=== PATIENT | male | born 1995 | race Caucasian/White ===

== ENCOUNTER 2016-12-14 08:05 | Emergency (ER) | payer BC ==
--- NOTE | 2016-12-14 09:19 | RAD ---
INDICATION: Cough. Short of breath COMPARISON: None TECHNIQUE: PA and lateral dual-energy views were obtained. FINDINGS: Bones/Soft Tissues: There are no acute bony findings. Cardiomediastinal: The cardiomediastinal silhouette is normal. Lungs: There are no infiltrates. Pleura: There are no pleural effusions. Other: None IMPRESSION: NO ACTIVE DISEASE.
--- NOTE | 2016-12-14 09:19 | ED ---
Respiratory - HPI Summary HPI Summary: 21M presents with cough, sinus congestion for 2 days. He has admits to SOB with cough. He denies any chest pain. He denies any abdominal pain or generalized body aches. He also complains of bilateral hip pain. He denies any injury to the hip. He denies any fever. He states ibuprofen alleviates his hip pain. He states that walking does not affect the pain. He did have asthma when he was younger and he does smoke. - History of Current Complaint Chief Complaint: EDUpperRespComplaint Stated Complaint: FLU LIKE SYMPTOMS/HIP COMPLAINT Time Seen by Provider: 12/14/16 08:14 Pain Intensity: 6 - Allergy/Home Medications Allergies/Adverse Reactions: Allergies Allergy/AdvReac Type Severity Reaction Status Date / Time No Known Allergies Allergy Verified 07/09/16 17:20 PMH/Surg Hx/FS Hx/Imm Hx Cardiovascular History: Denies: Hx Hypertension Respiratory History: Reports: Hx Asthma - CHILDHOOD Infectious Disease History: Denies: Traveled Outside the [place] in Last 30 Days - Family History Known Family History: Negative: Cardiac Disease - Social History Alcohol Use: Rare Substance Use Type: Reports: None Smoking Status (MU): Former Smoker Have You Smoked in the Last Year: No Review of Systems Negative: Fever Positive: Nasal Discharge Negative: Chest Pain Positive: Shortness Of Breath, Cough Positive: Myalgia - hip pain bilateral All Other Systems Reviewed And Are Negative: Yes Physical Exam Triage Information Reviewed: Yes Vital Signs On Initial Exam: Initial Vitals Temp Pulse Resp BP Pulse Ox 97.9 F 91 20 119/69 97 12/14/16 08:07 12/14/16 08:07 12/14/16 08:07 12/14/16 08:07 12/14/16 08:07 Vital Signs Reviewed: Yes Appearance: Positive: Well-Appearing Skin: Positive: Warm, Dry Head/Face: Positive: Normal Head/Face Inspection Eyes: Positive: Normal, Conjunctiva Clear ENT: Positive: Normal ENT inspection, Pharynx normal, Nasal congestion, TMs normal Neck: Positive: Supple, Nontender, No Lymphadenopathy Respiratory/Lung Sounds: Positive: Clear to Auscultation, Breath Sounds Present Cardiovascular: Positive: Normal, RRR Musculoskeletal: Positive: Strength/ROM Intact - of hips, Other - negative MANISH test, good pulses - Kennedy Coma Scale Coma Scale Total: 15 Diagnostics - Vital Signs Vital Signs Temp Pulse Resp BP Pulse Ox 12/14/16 08:14 97.9 F 88 20 116/70 97 12/14/16 08:07 97.9 F 91 20 119/69 97 - Laboratory Lab Statement: Any lab studies that have been ordered have been reviewed, and results considered in the medical decision making process. - Radiology chest Xray Interpretation: No Acute Changes Radiology Interpretation Completed By: Radiologist Disposition - Course Course Of Treatment: 21M presents with sinus congestion, cough, and SOB. denies any fever. also admits to hip pain that started same time. still able to ambulate which does not affect pain. ibuprofen alleviates pain. on exam full ROM of hip without pain. chest CTA. chest xray normal. will give inhaler for cough and SOB has had history of childhood asthma. told take ibuprofen for hips as no injury no need for imaging. patient understands and agrees with plan - Differential Dx - Cardiopulmonary Differential Diagnoses - Cardiopulmonary: Asthma, Bronchitis, Lower Resp Infection - Diagnoses Provider Diagnoses: Upper respiratory infection, Hip pain Discharge - Discharge Plan Condition: Good Disposition: HOME Prescriptions: Albuterol HFA INHALER* [Ventolin HFA Inhaler*] 1 puff INH Q4H PRN #1 mdi PRN Reason: Shortness Of Breath Fluticasone NASAL SPRAY 50MCG* [Flonase NASAL SPRAY 50MCG*] 2 spray BOTH NARES DAILY #1 btl Patient Education Materials: Upper Respiratory Infection (ED) Forms: *Work Release Referrals: No Primary Care Phys,NOPCP [Primary Care Provider] - Additional Instructions: Use Flonase one spray each nostril twice a day for sinus congestion Use inhaler one puff every 4 hours for cough as needed Use saline in the nose for nasal congestion Use humidifier or place warm bowls of water around the room for cough Can Tylenol or ibuprofen every 6 hours for pain Establish care with primary care physician Return to ED if develop any new or worsening symptoms
[2016-12-14 09:39] VITALS: BP 128/78
== END 2016-12-14 09:37 | disposition home or self-care (01) ==
LOC: ED 08:05
DX: J06.9 Acute upper respiratory infection, unspecified (principal); M25.552 Pain in left hip; M25.551 Pain in right hip; Z87.891 Personal history of nicotine dependence; J45.909 Unspecified asthma, uncomplicated
CPT/HCPCS: 71020; 99282

== ENCOUNTER 2017-01-25 13:00 | Emergency (ER) | payer SELFPAY ==
[2017-01-25 13:08] VITALS: BP 103/59
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
--- NOTE | 2017-01-25 15:01 | RAD ---
INDICATION: Headaches. Dizzy. COMPARISON: CT brain November 07, 2008 TECHNIQUE: Noncontrast axial source images were acquired from the skull base to the vertex. FINDINGS: Ventricles/sulci: The ventricles and cisterns are normal in size and configuration for age. Brain parenchyma: There is no focal parenchymal finding, evidence of intracranial mass, or intracranial mass effect. Intracranial hemorrhage:None. Extra-axial spaces: There are no abnormal extra axial fluid collections or evidence of extra-axial mass. Calvarium: There is no calvarial fracture or other calvarial abnormality. Scalp: There is no evidence of scalp or extracalvarial soft tissue abnormality. Paranasal sinuses/mastoid: There is minor ethmoid sinusitis. The paranasal sinuses and mastoid air cells are otherwise clear. Other: None. IMPRESSION: NO INTRACRANIAL ABNORMALITIES
== END 2017-01-25 15:14 | disposition home or self-care (01) ==
LOC: UCEAST 13:00
DX: S06.0X0A Concussion without loss of consciousness, initial encounter (principal); S00.03XA Contusion of scalp, initial encounter; V43.52XA Car driver injured in collision with other type car in traffic accident, initial encounter
CPT/HCPCS: 70450; 99211; G0463

== ENCOUNTER 2017-02-01 09:49 | Emergency (ER) | payer BC ==
--- NOTE | 2017-02-01 13:04 | ED ---
Abdominal Pain/Male - HPI Summary HPI Summary: 21 male presents with complaints of needing a work note in order to go back to work. States his work made him obtain a medical evaluation in order for him to return after vomiting twice while at work this morning. Patient denies nausea, fever/chills, abdominal pain and recent episode of vomiting since. Does not have any complaints at this time. States he thinks the vomiting was from the mongolian food he ate last night. Denies urinary and genitalia symptoms. Normal bowel movements. No pain or nausea. Denies PMHx. States he took some Tums and has since felt better. Has drank after episodes of vomiting. - History of Current Complaint Chief Complaint: EDNauseaVomitDiarrh Stated Complaint: VOMITTING,NAUSEA Time Seen by Provider: 02/01/17 11:22 Hx Obtained From: Patient Onset/Duration: Sudden Onset, Resolved Severity Currently: None Pain Intensity: 0 Pain Scale Used: 0-10 Numeric Alleviating Factor(s): Antacids Associated Signs And Symptoms: Positive: Negative - Allergies/Home Medications Allergies/Adverse Reactions: Allergies Allergy/AdvReac Type Severity Reaction Status Date / Time No Known Allergies Allergy Verified 07/09/16 17:20 PMH/Surg Hx/FS Hx/Imm Hx Endocrine/Hematology History: Denies: Hx Diabetes Cardiovascular History: Denies: Hx Hypertension Respiratory History: Reports: Hx Asthma - CHILDHOOD - Surgical History Surgery Procedure, Year, and Place: none - Immunization History Immunizations Up to Date: Yes Infectious Disease History: No Infectious Disease History: Denies: Hx Clostridium Difficile, Hx Hepatitis, Hx Human Immunodeficiency Virus (HIV), Hx of Known/Suspected MRSA, Hx Shingles, Hx Tuberculosis, Hx Known/ Suspected VRE, Hx Known/Suspected VRSA, History Other Infectious Disease, Traveled Outside the [place] in Last 30 Days - Family History Known Family History: Positive: Other - mother-ms. Negative: Cardiac Disease - Social History Alcohol Use: Rare Substance Use Type: Reports: Marijuana Smoking Status (MU): Former Smoker Have You Smoked in the Last Year: No Review of Systems Constitutional: Negative Cardiovascular: Negative Respiratory: Negative Positive: Vomiting - resolved Musculoskeletal: Negative Skin: Negative Neurological: Negative All Other Systems Reviewed And Are Negative: Yes Physical Exam Triage Information Reviewed: Yes Vital Signs On Initial Exam: Initial Vitals Temp Pulse Resp BP Pulse Ox 97.6 F 75 16 148/75 98 06/13/17 09:59 02/01/17 09:59 02/01/17 09:59 02/01/17 09:59 02/01/17 09:59 BP elevated, patient was nervous, re-checked and in normal range 134/75. advised to re-check at PCP within 2 weeks. Vital Signs Reviewed: Yes Appearance: Positive: Well-Appearing, No Pain Distress, Well-Nourished Skin: Positive: Warm, Skin Color Reflects Adequate Perfusion, Dry. Negative: Cold, Numb, Pale Head/Face: Positive: Normal Head/Face Inspection Eyes: Positive: Normal, Conjunctiva Clear ENT: Positive: Normal ENT inspection, Hearing grossly normal, Pharynx normal Neck: Positive: Supple, Nontender, No Lymphadenopathy Respiratory/Lung Sounds: Positive: Clear to Auscultation, Breath Sounds Present. Negative: Rales, Rhonchi, Stridor, Wheezes Cardiovascular: Positive: Normal, RRR, Pulses are Symmetrical in both Upper and Lower Extremities. Negative: Murmur, Rub Abdomen Description: Positive: Nontender, No Organomegaly, Soft. Negative: Bruit, CVA Tenderness (R), CVA Tenderness (L), Distended, Guarding, McBurney's Point Tenderness, Pulsatile Mass, Splenomegaly Bowel Sounds: Positive: Present Male Genital Exam: Positive: normal genitalia - per patient Musculoskeletal: Positive: Normal, Strength/ROM Intact Neurological: Positive: Normal, Sensory/Motor Intact, Alert, Oriented to Person Place, Time Psychiatric: Positive: Normal AVPU Assessment: Alert Diagnostics - Vital Signs Vital Signs Temp Pulse Resp BP Pulse Ox 02/01/17 10:01 98.7 F 79 16 148/74 98 02/01/17 09:59 97.6 F 75 16 148/75 98 - Laboratory Lab Statement: Any lab studies that have been ordered have been reviewed, and results considered in the medical decision making process. Abdominal Pain Fem Course/Dx - Course Course Of Treatment: due to patient's symptoms resolving and has no complaints currently was not given any medication and no further work up required. normal PE findings and vital signs. Aware of worsening signs and symptoms to watch out for. If return/worsen told to seek medical attention. Probiotic pill, water and rest. Follow up PCP and re-check BP. Given work note - Diagnoses Differential Diagnosis/HQI/PQRI: Other - GERD, food poisoning, gastritis Provider Diagnoses: Vomiting Discharge - Discharge Plan Condition: Stable Disposition: HOME Patient Education Materials: Acute Nausea and Vomiting (ED) Forms: *Work Release Referrals: No Primary Care Phys,NOPCP [Primary Care Provider] - [facility] [place] [Outside] Additional Instructions: If you develop new or worsening symptoms please return or seek medical attention. Follow up with PCP. Continue Tums as needed for relief and drink plenty of fluids. Avoid spicy and acidic foods. Avoid take out. Recommend taking probiotic pill to replenish normal felipa in GI tract.
[2017-02-01 13:10] VITALS: BP 134/75
== END 2017-02-01 13:09 | disposition home or self-care (01) ==
LOC: ED 09:49
DX: R11.10 Vomiting, unspecified (principal); Z87.891 Personal history of nicotine dependence
CPT/HCPCS: 99281

== ENCOUNTER → 2017-02-04 06:47 | Emergency (ER) | payer BC, OTHER ==
[~2017-02-04 06:47] MED LIST: Albuterol HFA INHALER* 8 gm MDI INH ONE; Albuterol/Ipratropium NEB.SOL* Albuterol 2.5 MG/Ipratropium 0.5 MG 3 ML INH ONE; predniSONE TAB* 20 MG PO ONE
--- NOTE | 2017-02-04 09:14 | RAD ---
Indication: Shortness of breath. 2 views of the chest including dual energy PA views demonstrate no mediastinal shift. Heart is of normal size and configuration. Lung berg demonstrate no pleural fluid, pneumonia or pneumothorax. Overall no changes noted since previous exam of December 14, 2016. IMPRESSION: No active cardiopulmonary disease is noted.
[2017-02-04 09:46] VITALS: BP 107/51
--- NOTE | 2017-02-04 18:22 | ED ---
Zuleika Mcdaniel Rebecca, scribed for Jordan Barraza MD on 02/04/17 at 0837 . Complex/Multi-Sys Presentation - HPI Summary HPI Summary: Pt is a 21 y/o M who presents to ED s/p episode of near syncope earlier today at 0620. Reports he had a productive cough and SOB (dyspnea at rest) immediately prior to an episode during which he "fell to the floor." Reports that all symptoms have since resolved. Sx aggravated by nothing, alleviated by spontaneous resolution. Denies any CP, fever, chills. PMHx asthma. - History Of Current Complaint Chief Complaint: EDGeneral Time Seen by Provider: 02/04/17 07:14 Hx Obtained From: Patient Onset/Duration: Sudden Onset, Resolved Severity Currently: None Aggravating Factor(s): Nothing Alleviating Factor(s): Spontaneous resolution Associated Signs And Symptoms: Positive: Syncope - Near syncopal episode - resolved, SOB - dyspnea at rest - resolved, Cough - productive - resolved, Other - Denies chills. Negative: Chest Pain, Fever - Allergies/Home Medications Allergies/Adverse Reactions: Allergies Allergy/AdvReac Type Severity Reaction Status Date / Time No Known Allergies Allergy Verified 02/04/17 06:51 PMH/Surg Hx/FS Hx/Imm Hx Endocrine/Hematology History: Denies: Hx Diabetes Cardiovascular History: Denies: Hx Hypertension Respiratory History: Reports: Hx Asthma - CHILDHOOD - Surgical History Surgery Procedure, Year, and Place: none Infectious Disease History: No Infectious Disease History: Denies: Hx Clostridium Difficile, Hx Hepatitis, Hx Human Immunodeficiency Virus (HIV), Hx of Known/Suspected MRSA, Hx Shingles, Hx Tuberculosis, Hx Known/ Suspected VRE, Hx Known/Suspected VRSA, History Other Infectious Disease, Traveled Outside the [place] in Last 30 Days - Family History Known Family History: Positive: Other - mother-ms. Negative: Cardiac Disease - Social History Alcohol Use: Rare Substance Use Type: Reports: Marijuana Smoking Status (MU): Former Smoker Have You Smoked in the Last Year: No Review of Systems Negative: Fever, Chills Negative: Chest Pain Positive: Shortness Of Breath - dyspnea at rest - resolved, Cough - productive - resolved Positive: Syncope - near syncope episode - resolved All Other Systems Reviewed And Are Negative: Yes Physical Exam - Summary Physical Exam Summary: VITAL SIGNS: Reviewed. GENERAL: ~Patient is a well-developed and nourished male who is lying comfortable in the stretcher. ~Patient is not in any acute respiratory distress. HEAD AND FACE: No signs of trauma. ~No ecchymosis, hematomas or skull depressions. No sinus tenderness. EYES: PERRLA, EOMI x 2, No injected conjunctiva, no nystagmus. EARS: Hearing grossly intact. Ear canals and tympanic membranes are within normal limits. MOUTH: Oropharynx within normal limits. NECK: Supple, trachea is midline, no adenopathy, no JVD, no carotid bruit, no c- spine tenderness, neck with full ROM. CHEST: Symmetric, no tenderness at palpation LUNGS: Slight wheezing in the apical region of the lungs. No crackles. CVS: Regular rate and rhythm, S1 and S2 present, no murmurs or gallops appreciated. ABDOMEN: Soft, non-tender. No signs of distention. No rebound no guarding, and no masses palpated. Bowel sounds are normal. EXTREMITIES: FROM in all major joints, no edema, no cyanosis or clubbing. NEURO: Alert and oriented x 3. No acute neurological deficits. Speech is normal and follows commands. SKIN: Dry and warm. The back has erythema secondary to sun exposure. Triage Information Reviewed: Yes Vital Signs On Initial Exam: Initial Vitals Temp Pulse Resp BP Pulse Ox 98.9 F 78 22 125/53 100 02/04/17 06:50 02/04/17 06:50 02/04/17 06:50 02/04/17 06:50 02/04/17 06:50 Vital Signs Reviewed: Yes - Nalini Coma Scale Coma Scale Total: 15 Diagnostics - Vital Signs Vital Signs Temp Pulse Resp BP Pulse Ox 02/04/17 08:16 70 12 99 02/04/17 06:50 98.9 F 78 22 125/53 100 - Laboratory Lab Statement: Any lab studies that have been ordered have been reviewed, and results considered in the medical decision making process. - Radiology CXR Xray Interpretation: No Acute Changes - No active cardiopulmonary disease is noted. Radiology Interpretation Completed By: Radiologist Re-Evaluation - Re-Evaluation First Eval Re-Evaluation Time: 09:20 Change: Improved Comment: Discussed CXR results and D/C plan. Pt is feeling significantly better. Complex Multi-Symp Course/Dx Assessment/Plan: Pt is a 21 y/o M who presents to ED s/p episode of near syncope earlier today at 0620. Reports he had a productive cough and SOB ( dyspnea at rest) immediately prior to an episode during which he "fell to the floor." Reports that all symptoms have since resolved. Sx aggravated by nothing , alleviated by spontaneous resolution. Denies any CP, fever, chills. PMHx asthma. CXR shows no acute pathology. Initially, the PE revealed slight wheezing for which the patient was given Prednisone and duoneb. After medications, sx improved. The patient is asymptomatic. The patient was observed for a couple hours, frequent physical examinations reveal lungs clear to auscultation bilaterally. Therefore, he will be D/C to home with follow up with PCP. He was given an albuterol inhaler and an Rx for prednisone. He is hemodynamically stable and AxOx3. - Diagnoses Provider Diagnoses: Asthma exacerbation Discharge - Discharge Plan Condition: Stable Disposition: HOME Prescriptions: predniSONE TAB* [Deltasone TAB*] 40 mg PO DAILY #8 tab Patient Education Materials: Asthma (ED) Forms: *Work Release Referrals: [facility] [Outside] - 3 Days The documentation as recorded by the Zuleika alvarez Rebecca accurately reflects the service I personally performed and the decisions made by , Jordan Barraza MD.
== END | disposition home or self-care (01) ==
LOC: ED 06:47
DX: J45.901 Unspecified asthma with (acute) exacerbation (principal); R55 Syncope and collapse; R06.02 Shortness of breath; R05 Cough; Z87.891 Personal history of nicotine dependence
CPT/HCPCS: 71020; 94640; 99282; A9270-GY

== ENCOUNTER 2018-09-10 09:39 | Emergency (ER) | payer BC, OTHER ==
--- NOTE | 2018-09-10 10:35 | ED ---
Lower Extremity - HPI Summary HPI Summary: Patient presents with left foot and ankle pain after falling down what he reports are 30 stairs. He was cleaning these off as part of his job when he slipped and fell. He is not exactly sure how he fell down the stairs but denies loss of consciousness, headache, neck pain, change in vision, nausea, vomiting, numbness, tingling, weakness, chest pain, abdominal pain, back pain, bruising, bleeding. Other than 5/10 Lt foot and ankle pain, he is feeling fine. He reports he came in today for evaluation per recommendation of his employer. He denies numbness, tingling, weakness in his foot and ankle and pain is mostly felt over the dorsal aspect of his foot. He is able to move in well. He is having is. A I through full range without restriction however he reports pain with dorsiflexion. He is also able to bear some weight but it is painful. No swelling however patient's feet are cold from being outside shoveling in the snow which she feels is helping his pain at this point in time. No meds prior to arrival. - History of Current Complaint Chief Complaint: EDExtremityLower Stated Complaint: LEFT ANKLE INJURY Time Seen by Provider: 09/10/18 09:39 Hx Obtained From: Patient Pain Intensity: 5 - Allergies/Home Medications Allergies/Adverse Reactions: Allergies Allergy/AdvReac Type Severity Reaction Status Date / Time No Known Allergies Allergy Verified 02/04/17 06:51 Home Medications: Home Medications NK [No Home Medications Reported] 09/10/18 [History Confirmed 09/10/18] PMH/Surg Hx/FS Hx/Imm Hx Previously Healthy: Yes Endocrine/Hematology History: Denies: Hx Anticoagulant Therapy, Hx Blood Disorders, Hx Diabetes Cardiovascular History: Denies: Hx Hypertension Respiratory History: Reports: Hx Asthma - CHILDHOOD - Surgical History Surgery Procedure, Year, and Place: none Infectious Disease History: No Infectious Disease History: Denies: Hx Clostridium Difficile, Hx Hepatitis, Hx Human Immunodeficiency Virus (HIV), Hx of Known/Suspected MRSA, Hx Shingles, Hx Tuberculosis, Hx Known/ Suspected VRE, Hx Known/Suspected VRSA, History Other Infectious Disease, Traveled Outside the [place] in Last 30 Days - Family History Known Family History: Positive: Other - mother-ms. Negative: Cardiac Disease - Social History Occupation: Employed Full-time Alcohol Use: Rare Substance Use Type: Reports: Marijuana - helps his ADD Hx Tobacco Use: Yes - quit a month ago Smoking Status (MU): Former Smoker Have You Smoked in the Last Year: No Review of Systems Constitutional: Negative Negative: Fatigue Eyes: Negative Negative: Photophobia, Blurred Vision, Diplopia ENT: Negative Negative: Epistaxis, Dental Pain, Sore Throat, Ear Ache, Nasal Discharge Cardiovascular: Negative Negative: Chest Pain Respiratory: Negative Negative: Shortness Of Breath Gastrointestinal: Negative Negative: Abdominal Pain, Vomiting, Nausea Genitourinary: Negative Negative: incontinence Positive: Arthralgia, Myalgia. Negative: Decreased ROM, Edema Skin: Negative Negative: Bruising Neurological: Negative Negative: Headache, Weakness, Paresthesia, Numbness, Syncope, Slurred Speech Psychological: Normal All Other Systems Reviewed And Are Negative: Yes Physical Exam Triage Information Reviewed: Yes Vital Signs On Initial Exam: Initial Vitals Temp Pulse Resp BP Pulse Ox 97.5 F 100 16 132/91 99 09/10/18 09:45 09/10/18 09:45 09/10/18 09:45 09/10/18 09:45 09/10/18 09:45 Vital Signs Reviewed: Yes Appearance: Positive: Well-Appearing, No Pain Distress, Well-Nourished Skin: Positive: Warm, Skin Color Reflects Adequate Perfusion, Dry - no ecchymosis over affected area - B/L feet are cold w/ erythema but well perfused Head/Face: Positive: Normal Head/Face Inspection - atraumatic Eyes: Positive: Normal, EOMI, SEN - no photophobia, Conjunctiva Clear ENT: Positive: Normal ENT inspection, Hearing grossly normal, Pharynx normal - atraumatic, TMs normal - no hemotympanum Dental: Negative: Dental Fracture @ Neck: Positive: Supple, Nontender - FROM w/o pain or restriction - NTTP Respiratory/Lung Sounds: Positive: Clear to Auscultation, Breath Sounds Present. Negative: Stridor, Tracheal Deviation, Wheezes, Unable to speak in full sentences, Fatigue Cardiovascular: Positive: Normal, RRR Abdomen Description: Positive: Nontender, Soft Musculoskeletal: Positive: Strength/ROM Intact, Pain @ - Lt dorsal foot w/ mild TTP - reports apple here w/ dorsiflexion - no edema, no gross deformity Neurological: Positive: Normal, Sensory/Motor Intact, Alert, Oriented to Person Place, Time, CN Intact II-III, Reflexes Intact Psychiatric: Positive: Normal - Nalini Coma Scale Best Eye Response: 4 - Spontaneous Best Motor Response: 6 - Obeys Commands Best Verbal Response: 5 - Oriented Coma Scale Total: 15 Diagnostics - Vital Signs Vital Signs Temp Pulse Resp BP Pulse Ox 09/10/18 09:45 97.5 F 100 16 132/91 99 - Laboratory Lab Statement: Any lab studies that have been ordered have been reviewed, and results considered in the medical decision making process. Lower Extremity Course/Dx - Course Course Of Treatment: XR's: no fx, no dislocation. Suspect sprain - supportive care and f/u advised. Additional testing was not performed as pt does not have any clinical sx nor PE findings to warrant more aggressive imaging, etc. Reviewed danger s/sx of when to return to ED - pt agrees w/ plan. - Diagnoses Provider Diagnoses: Left ankle sprain, Fall down stairs Discharge - Sign-Out/Discharge Documenting (check all that apply): Patient Departure - Discharge Plan Condition: Stable Disposition: HOME Patient Education Materials: Ankle Sprain (ED), Crutch Instructions (ED) Forms: *Work Release Referrals: [facility] [Outside] Additional Instructions: REST, ICE, ELEVATE AND WEAR AYANNA WRAP DURING THE DAY TO PREVENT SWELLING. Call PCP tomorrow to schedule follow-up in 1-2 weeks. You may take ibuprofen alternating with acetaminophen as needed for pain *If you develop numbness, tingling, weakness, swelling or skin discoloration, remove AYANNA wrap and elevate leg for 20 minutes. If symptoms persist, return to ED *If you develop headache, neck pain, change in vision, vomiting, dizziness, numbness, weakness, syncope or slurred speech, return to ED - Billing Disposition and Condition Condition: STABLE Disposition: Home
[2018-09-10 14:32] VITALS: BP 150/92
== END 2018-09-10 11:07 | disposition home or self-care (01) ==
LOC: ED 09:39
DX: S93.402A Sprain of unspecified ligament of left ankle, initial encounter (principal); W10.9XXA Fall (on) (from) unspecified stairs and steps, initial encounter; Y92.9 Unspecified place or not applicable; Y99.0 Civilian activity done for income or pay; Z87.891 Personal history of nicotine dependence; F98.8 Other specified behavioral and emotional disorders with onset usually occurring in childhood and adolescence
CPT/HCPCS: 99282

== ENCOUNTER 2019-02-05 09:02 | Emergency (ER) | payer SELFPAY ==
--- NOTE | 2019-02-05 10:17 | ED ---
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 2 coworkers tried to awake him for approximately 30 minutes and they were unable to do so. They state he was very "stiff" and "twitching". Patient states he has had this once in the past and was seen here in the ED for this. Medical records show in 2017 patient was seen here for a syncopal episode, but no seizure-like activity. CT brain was obtained at that time and was normal and showed no intracranial abnormalities area patient states he feels fine, and is not fatigued, tired, with no headache, CP or SOB. Denies recent illness. He states for the last 3 days he has not been sleeping well. He states he is a very heavy sleeper and feels he may have just been sleeping heavily and his coworkers went and able to wake him. No seizure activity. Grandmother has history of seizures and there is brain cancer in the family. Mother is at bedside concerned with seizures and states "this is his third seizure." This, however, is not confrimed, no EEG has ever been obtained and he has not seen neurology. 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 Onset/Duration: Sudden Onset Severity Of Seizure: Self-Limited Aggravating Factor(s): Other - insomnia Alleviating Factor(s): Spontaneous Resolution - 30 minutes - Risk Factors SAH Risk Factors: Negative Meningitis Risk Factors: Negative SDH Risk Factor: Negative - Allergies/Home Medications Allergies/Adverse Reactions: Allergies Allergy/AdvReac Type Severity Reaction Status Date / Time No Known Allergies Allergy Verified 02/05/19 09:11 Home Medications: Home Medications Mv-Mn/Folic Acid/Lutein/Con480 [Mens Multivit High Potency Tab] 1 each PO DAILY 02/05/19 [History Confirmed 02/05/19] PMH/Surg Hx/FS Hx/Imm Hx Previously Healthy: Yes Endocrine/Hematology History: Denies: Hx Anticoagulant Therapy, Hx Blood Disorders, Hx Diabetes Cardiovascular History: Denies: Hx Hypertension Respiratory History: Reports: Hx Asthma - CHILDHOOD - Surgical History Surgery Procedure, Year, and Place: none - Immunization History Hx Pertussis Vaccination: No Immunizations Up to Date: Yes Infectious Disease History: No Infectious Disease History: Denies: Hx Clostridium Difficile, Hx Hepatitis, Hx Human Immunodeficiency Virus (HIV), Hx of Known/Suspected MRSA, Hx Shingles, Hx Tuberculosis, Hx Known/ Suspected VRE, Hx Known/Suspected VRSA, History Other Infectious Disease, Traveled Outside the [place] in Last 30 Days - Family History Known Family History: Positive: Other - mother-ms. Negative: Cardiac Disease - Social History Occupation: Employed Full-time Lives: With Family Alcohol Use: Rare Hx Substance Use: Yes Substance Use Type: Reports: Marijuana Hx Tobacco Use: Yes - quit a month ago Smoking Status (MU): Heavy Every Day Tobacco Smoker Have You Smoked in the Last Year: No Review of Systems Constitutional: Negative Negative: Fever, Chills, Fatigue, Skin Diaphoresis Negative: Palpitations, Chest Pain Negative: Shortness Of Breath, Cough Genitourinary: Negative Positive: no symptoms reported, see HPI Negative: Arthralgia, Myalgia Skin: Negative Positive: Other All Other Systems Reviewed And Are Negative: Yes Physical Exam Triage Information Reviewed: Yes Vital Signs On Initial Exam: Initial Vitals Temp Pulse Resp BP Pulse Ox 98.1 F 84 18 168/102 97 02/05/19 09:04 02/05/19 09:04 02/05/19 09:04 02/05/19 09:04 02/05/19 09:04 Vital Signs Reviewed: Yes Appearance: Positive: Well-Appearing, Well-Nourished Skin: Positive: Warm, Skin Color Reflects Adequate Perfusion Head/Face: Positive: Normal Head/Face Inspection Eyes: Positive: EOMI, SEN, Conjunctiva Clear Neck: Positive: Supple, No Lymphadenopathy Respiratory/Lung Sounds: Positive: Clear to Auscultation, Breath Sounds Present Cardiovascular: Positive: Normal, RRR, Pulses are Symmetrical in both Upper and Lower Extremities Musculoskeletal: Positive: Normal, Strength/ROM Intact Neurological: Positive: Sensory/Motor Intact, CN Intact II-III, Speech Normal Psychiatric: Positive: Normal, Affect/Mood Appropriate AVPU Assessment: Alert - Nalini Coma Scale Best Eye Response: 4 - Spontaneous Best Motor Response: 6 - Obeys Commands Best Verbal Response: 5 - Oriented Coma Scale Total: 15 Diagnostics - Vital Signs Vital Signs Temp Pulse Resp BP Pulse Ox 02/05/19 09:04 98.1 F 84 18 168/102 97 - Laboratory Result Diagrams: 02/05/19 10:19 02/05/19 10:19 Lab Statement: Any lab studies that have been ordered have been reviewed, and results considered in the medical decision making process. Course/Dx - Course Course Of Treatment: During the course treatment, the patient is evaluated for seizure-like activity. Patient has no history of seizures. Patient states he was in the truck heading to work when he was sleeping. Patient states he typically sleeps on his way to work. 2 coworkers were trying to awaken for 30 minutes without success. He states he is a very heavy sleeper and typically does not respond normally. He stated he was "stiff and twitching." He denies any symptoms and states he feels fine. Mother is at bedside concerned with seizure-like activity and states "this is his third seizure." This has never been documented, patient has had no prior EEGs or has seen neurology. CT brain obtained 2 years ago when he was seen here for sickle episode and this showed no intracranial abnormalities. On physical examination, patient appears well and does not appear to be in a postictal state. Denies fatigue at this time. Patient states for the past 3 days he has not been sleeping. He denies any concerns. Denies any CP, SOB, headache injury and headache. CT brain obtained : Shows no intracranial abnormalities. Labs obtained: Which are WNL. Discussed case with Dr. Nunez at 11:50 AM who recommends outpatient follow- up. Follow-up given to patient. Patient states he feels well and is okay for discharge at this time. Here for some concerns. - Diagnoses Provider Diagnoses: Unresponsive episode - Physician Notifications Discussed Care of Patient With: Subhash Nunez Time Discussed With Above Provider: 11:45 Instructed by Provider To: Have Pt Call For Appt. Discharge - Sign-Out/Discharge Documenting (check all that apply): Patient Departure Patient Received Moderate/Deep Sedation with Procedure: No - Discharge Plan Condition: Fair Disposition: HOME Patient Education Materials: New-Onset Seizure in Adults (ED) Referrals: Subhash Nunez MD [Medical Doctor] - No Primary Care Phys,NOPCP [Primary Care Provider] - Additional Instructions: Please do not drive until you see neurology If symptoms worsen, return to the ED - Billing Disposition and Condition Condition: FAIR Disposition: Home
[2019-02-05 10:40] LABS: ABS Basophils 0.1 10^3/ul (0-0.2); ABS Eosinophils 0.6 10^3/ul (0-0.6); ABS Lymphocytes 1.8 10^3/ul (1.0-4.8); ABS Monocytes 0.9 10^3/ul (0-0.8); Eosinophil % 7.2 %; Hematocrit 49 % (42-52); Hemoglobin 16.4 g/dL (14.0-18.0); Lymphocyte % 21.4 %; Mean Corpuscular HGB Conc 34 g/dL (31-36); Mean Corpuscular Hemoglobin 30 pg (27-31); Mean Corpuscular Volume 89 fL (80-94); Mean Platelet Volume 8.5 fL (7.4-10.4); Platelet Count 189 10^3/uL (150-450); Red Blood Count 5.47 10^6 /uL (4.18-5.48); Red Cell Distribution Width 13 % (10-15); White Blood Count 8.4 10^3/uL (3.5-10.8)
[2019-02-05 10:48] LABS: Activated Partial Thrombo Time 33.6 seconds (26.0-38.0); INR 0.9 (0.82-1.09)
[2019-02-05 10:52] LABS: ALT 24 U/L (7-52); AST 17 U/L (13-39); Albumin 4.1 g/dL (3.2-5.2); Albumin/Globulin Ratio 1.5 (1-3); Alkaline Phosphatase 52 U/L (34-104); Anion Gap 5 mmol/L (2-11); BUN/Creatinine Ratio 23.6 (8-20); Blood Urea Nitrogen 25 mg/dL (6-24); CO2 Carbon Dioxide 28 mmol/L (22-32); Calcium 9.7 mg/dL (8.6-10.3); Chloride 107 mmol/L (101-111); Creatine Kinase 50 U/L (10-223); EGFR African American 103.9 (>60); EGFR Non-African American 85.8 (>60); Globulin 2.7 g/dL (2-4); Glucose 108 mg/dL (70-100); Magnesium 2.2 mg/dL (1.9-2.7); Potassium 4.4 mmol/L (3.5-5.0); Sodium 140 mmol/L (135-145); Total Protein 6.8 g/dL (6.4-8.9)
[2019-02-05 10:55] LABS: Urine Appearance Clear; Urine Bilirubin Negative (Negative); Urine Blood Negative (Negative); Urine Color Yellow; Urine Glucose Negative (Negative); Urine Ketones Negative (Negative); Urine Nitrite Negative (Negative); Urine Protein Negative (Negative); Urine Specific Gravity 1.014 (1.010-1.030); Urine Urobilinogen Negative (Negative)
[2019-02-05 11:05] LABS: Alcohol < 10 mg/dL (<10)
[2019-02-05 11:09] LABS: Urine Benzodiazepine Screen None Detected (None Detect); Urine Opiates Screen None Detected (None Detect)
[2019-02-05 12:22] VITALS: BP 130/88
== END 2019-02-05 12:21 | disposition home or self-care (01) ==
LOC: ED 09:02
DX: R40.4 Transient alteration of awareness (principal); F17.210 Nicotine dependence, cigarettes, uncomplicated
CPT/HCPCS: 36415; 70450; 80053; 80307; 80320; 81003; 82550; 83605; 83735; 85025; 85610; 85730; 93005; 99282; G0480